=== PATIENT | female | born 2000 | race Caucasian/White ===

== ENCOUNTER 2023-08-25 15:47 | Emergency (ER) | payer SELFPAY ==
[2023-08-25] MEDS: ACETAMINOPHEN 1000 MG/100 ML BAG IVPB ONE (16:00)
[2023-08-25] MEDS: PIPERACILLIN/TAZOB 4.5 GM 4.5 GM in DEXTROSE 5%-WATER 100 ML IVPB ONE (16:05)
[2023-08-25 16:11] VITALS: RESP 20; BMI 44.1
[2023-08-25] MEDS ORDERED: ACETAMINOPHEN INJECTION 100 ML IVPB ONE (16:12)
[2023-08-25] MEDS ORDERED: PIPERACILLIN/TAZOBACTAM 4.5 GM VIAL IVPB ONE (16:13)
[2023-08-25] MEDS ORDERED: VANCOMYCIN 1,000 MG VIAL (RESTRICTED TO ID ONLY) ONE (16:13)
[2023-08-25 16:30] LABS: HEMATOCRIT 38.7 % (32.4-45.2); HEMOGLOBIN 12.9 G/dL (10.7-15.3); MCHC 33.2 g/dl (32.0-36.0); MEAN CELL VOLUME 90.2 fl (80-96); MEAN PLT VOLUME 7.8 fl (7.5-11.1); PLATELET COUNT 320.2 10^3/uL (134-434); RBC 4.29 10^6/uL (3.60-5.2); RDW 14.8 % (11.6-15.6); WHITE BLOOD COUNT 14.3 10^3/uL (4.0-10.8)
[2023-08-25] MEDS: VANCOMYCIN 1,000 MG in DEXTROSE 5%-WATER - 250 ML IVPB ONE (16:32)
[2023-08-25 16:39] LABS: INR 1.12 (0.83-1.09)
[2023-08-25 16:42] LABS: ACTIVATED PTT 33.1 SECONDS (25.2-36.5)
[2023-08-25 17:21] LABS: PLATELET ESTIMATE ADEQUATE
[2023-08-25 17:39] LABS: ERYTHROCYTE SEDIMENTATION RATE 16 mm/hr (0-20)
[2023-08-25 17:42] LABS: POTASSIUM 4.1 mmol/L (3.5-5.1)
[2023-08-25 17:44] LABS: ALBUMIN 3.8 g/dl (3.4-5.0); CALCIUM 8.8 mg/dL (8.5-10.1)
[2023-08-25 17:45] LABS: BLOOD UREA NITROGEN 21.4 mg/dL (7-18); MAGNESIUM 2.4 mg/dL (1.8-2.4)
[2023-08-25 17:47] LABS: CREATININE 0.6 mg/dL (0.55-1.3)
[2023-08-25 17:49] LABS: BILIRUBIN,TOTAL 0.4 mg/dL (0.2-1); TOT PROT 6.8 g/dl (6.4-8.2)
[2023-08-25] MEDS: morphine CARPU-JECT 2 MG/1 ML DISP.SYRIN IVPUSH ONE (18:56)
[2023-08-25 19:50] VITALS: BP 155/107; PULSE 108; TEMP 98.4
== END 2023-08-25 19:58 | disposition short-term general hospital (02) ==
LOC: FER 15:47
PROC: 3E03329 Introduction of Other Anti-infective into Peripheral Vein, Percutaneous Approach (ICD-10-PCS; principal; 2023-08-25)
PROC: 3E03329 Introduction of Other Anti-infective into Peripheral Vein, Percutaneous Approach (ICD-10-PCS; 2023-08-25)
PROC: 3E033NZ Introduction of Analgesics, Hypnotics, Sedatives into Peripheral Vein, Percutaneous Approach (ICD-10-PCS; 2023-08-25)
PROC: 3E033GC Introduction of Other Therapeutic Substance into Peripheral Vein, Percutaneous Approach (ICD-10-PCS; 2023-08-25)
DX: R22.31 Localized swelling, mass and lump, right upper limb (principal); M65.841 Other synovitis and tenosynovitis, right hand; M79.641 Pain in right hand
CPT/HCPCS: 36415; 73140-TC-RT-FY; 80053; 83735; 85027; 85610; 85651; 85730; 86850; 86900; 86901; 99285-25; J0131